=== PATIENT | female | born 1965 | race African-American/Black ===

== ENCOUNTER 2020-08-04 04:22 | Inpatient (IN) | payer OTHER ==
[2020-07-30 17:16] VITALS: BMI 44.1
[2020-08-04] MEDS ORDERED: PROPOFOL 20 ML ONE ×4 (07:21→11:22)
[2020-08-04] MEDS ORDERED: SUCCINYLCHOLINE CHLORIDE 200 MG/10 ML SYRINGE ONE (07:21)
[2020-08-04] MEDS ORDERED: MIDAZOLAM HCL 2 MG/2 ML SINGLE DOSE VIAL ONE ×3 (07:21→07:37)
[2020-08-04] MEDS ORDERED: fentaNYL CITRATE 250 MCG/5 ML VIAL ONE (07:21)
[2020-08-04] MEDS ORDERED: ROCURONIUM BROMIDE 50 MG/5 ML SYRINGE ONE (07:21)
[2020-08-04] MEDS ORDERED: ceFAZolin 2 GRAM PREMIX BAG IVPB ONE (08:18)
[2020-08-04] MEDS ORDERED: NEOSTIGMINE METHYLSULFATE 0.5 MG/ML - 10 ML MDV ONE (10:07)
[2020-08-04] MEDS ORDERED: oxyCODONE HCL 5 MG TABLET PO PRN (10:36)
[2020-08-04] MEDS ORDERED: IBUPROFEN 800 MG/8 ML IJ IVPB PRN (10:36)
[2020-08-04] MEDS ORDERED: ONDANSETRON 4 MG/2 ML VIAL IVPUSH PRN (12:06)
[2020-08-04] MEDS ORDERED: IBUPROFEN 800 MG/8 ML IJ IVPB ONE (12:25)
[2020-08-04] MEDS: CEFAZOLIN 2 GM/D5W 2 GM/50 ML ML IVPB SCH (15:57)
[2020-08-04] MEDS: ACETAMINOPHEN 325 MG TABLET (FP) PO SCH ×2 (16:01→17:24)
[2020-08-04] MEDS: oxyCODONE HCL 10 MG SUSTAINED ACTING TABLET PO SCH (21:21)
[2020-08-05] MEDS: ACETAMINOPHEN 325 MG TABLET (FP) PO SCH ×4 (00:15→17:53)
[2020-08-05] MEDS: CEFAZOLIN 2 GM/D5W 2 GM/50 ML ML IVPB SCH ×2 (00:16→08:06)
[2020-08-05] MEDS: oxyCODONE HCL 5 MG TABLET PO PRN ×4 (00:20→17:53)
[2020-08-05] MEDS: LACTATED RINGERS SOLUTION 1,000 ML IV SCH (00:21)
[2020-08-05 08:47] LABS: BASO % 0.3 % (0-2.0); EOS % 0.6 % (0-4.5); HEMOGLOBIN 8.2 GM/dL (10.7-15.3); LYMPH % 13.6 % (8-40); MCHC 33.1 g/dl (32.0-36.0); MEAN CELL VOLUME 81.6 fl (80-96); NEUT % 77.5 % (42.8-82.8); PLATELET COUNT 283 K/MM3 (134-434); RBC 3.06 M/mm3 (3.60-5.2); RDW 21.1 % (11.6-15.6); WHITE BLOOD COUNT 11.7 K/mm3 (4.0-10.0)
[2020-08-05] MEDS: oxyCODONE HCL 10 MG SUSTAINED ACTING TABLET PO SCH ×2 (10:22→22:00)
[2020-08-06] MEDS: LACTATED RINGERS SOLUTION 1,000 ML IV SCH (01:08)
[2020-08-06] MEDS: ACETAMINOPHEN 325 MG TABLET (FP) PO SCH ×3 (01:09→12:15)
[2020-08-06] MEDS: oxyCODONE HCL 5 MG TABLET PO PRN ×2 (01:09→06:42)
[2020-08-06] MEDS: oxyCODONE HCL 10 MG SUSTAINED ACTING TABLET PO SCH (09:45)
[2020-08-06 11:25] VITALS: BP 140/76; PULSE 93; TEMP 98.4
== END 2020-08-06 14:03 | disposition home or self-care (01) | DRG 743 ==
LOC: J2C 04:22 → J3W 12:57
PROVIDERS: ADMIT Obstetrics & Gynecology; ATTEND Obstetrics & Gynecology
PROC: 0UT50ZZ Resection of Right Fallopian Tube, Open Approach (ICD-10-PCS; 2020-08-04)
PROC: 0UT90ZL Resection of Uterus, Supracervical, Open Approach (ICD-10-PCS; principal; 2020-08-04 08:00)
DX: D25.9 Leiomyoma of uterus, unspecified (principal)
CPT/HCPCS: 36415; 84703; 85025; 86850; 86900; 86901; 88302-TC; 88304-TC; 88307-TC; 94010; 94760